=== PATIENT | female | born 1995 | race Caucasian/White ===

== ENCOUNTER 2016-03-28 10:27 | Emergency (ER) | payer OTHER ==
[2016-03-28 12:22] VITALS: BP 114/75
--- NOTE | 2016-03-28 12:52 | UC ---
Respiratory Complaint HPI - HPI Summary HPI Summary: Cough and fever starting 4 days ago, spent most of her time in bed since then. Today felt very sick to her stomach, one episode of loose stool and 2 episodes of vomiting. Has been wheezing, no hx of trouble breathing. - History of Current Complaint Chief Complaint: UCGeneralIllness Stated Complaint: COUGH AND FEVER Time Seen by Provider: 03/28/16 12:30 Hx Obtained From: Patient Hx Last Menstrual Period: 03/23/16 ?: No Onset/Duration: Gradual Onset, Lasting Days Timing: Constant Severity Initially: Moderate Severity Currently: Moderate Character: Cough: Nonproductive Aggravating Factors: Recumbent Position Alleviating Factors: Upright Position Associated Signs And Symptoms: Positive: Fever, Chills, Wheezing - Allergies/Home Medications Allergies/Adverse Reactions: Allergies Allergy/AdvReac Type Severity Reaction Status Date / Time COUGH MEDICINE Allergy Severe PUPILS Uncoded 03/28/16 12:22 DILATE & "MADE ME SICK" Home Medications: Home Medications Acetaminophen [Extra Strength Acetaminop] 2 tab PO PRN 03/28/16 [History] PMH/Surg Hx/FS Hx/Imm Hx Previously Healthy: Yes Endocrine History Of: Denies: Diabetes, Thyroid Disease Cardiovascular History Of: Denies: Cardiac Disorders, Hypertension Respiratory History Of: Denies: COPD, Asthma GI/ History Of: Denies: Ulcer - Surgical History Surgical History: Yes Surgery Procedure, Year, and Place: DENTAL - Family History Known Family History: Positive: Unknown, Other - FHx [place] in grandfather - Social History Occupation: Student Lives: With Family Alcohol Use: None Substance Use Type: None Smoking Status (MU): Heavy Every Day Tobacco Smoker Type: Cigarettes Household Exposure Type: Cigarettes Review of Systems Constitutional: Fever, Chills Skin: Negative Eyes: Negative ENT: Nasal Discharge Respiratory: Cough Cardiovascular: Negative Gastrointestinal: Vomiting, Diarrhea Genitourinary: Negative Motor: Negative Neurovascular: Negative Musculoskeletal: Negative Neurological: Negative Psychological: Negative All Other Systems Reviewed And Are Negative: Yes Physical Exam Triage Information Reviewed: Yes Appearance: Well-Appearing, No Pain Distress, Well-Nourished Vital Signs: Initial Vital Signs Temp 99.8 F 03/28/16 12:18 Pulse 99 03/28/16 12:18 Resp 18 03/28/16 12:18 BP 114/75 03/28/16 12:18 Pulse Ox 97 03/28/16 12:18 Vital Signs Reviewed: Yes Eye Exam: Normal Eyes: Positive: Conjunctiva Clear ENT: Positive: Hearing grossly normal, Pharynx normal, Nasal congestion, TMs normal Dental Exam: Normal Neck exam: Normal Neck: Positive: Supple, Nontender, No Lymphadenopathy Respiratory Exam: Normal Respiratory: Positive: Chest non-tender, Lungs clear, Normal breath sounds, No respiratory distress, No accessory muscle use. Negative: Respiratory distress, Crackles, Wheezing Cardiovascular: Positive: No Murmur, Tachycardia - low 100s on exam Abdomen Description: Positive: No Organomegaly, Soft. Negative: CVA Tenderness (R), CVA Tenderness (L) Musculoskeletal Exam: Normal Neurological Exam: Normal Psychological Exam: Normal Skin Exam: Normal UC Diagnostic Evaluation - Laboratory O2 Sat by Pulse Oximetry: 97 Respiratory Course/Dx - Differential Dx/Diagnosis Provider Diagnoses: influenza Discharge - Discharge Plan Condition: Stable Disposition: HOME Prescriptions: Albuterol HFA INHALER* [Ventolin HFA Inhaler*] 1 - 2 puff INH Q4H PRN #1 mdi PRN Reason: wheeze, cough Ondansetron ODT TAB* [Zofran Odt TAB*] 4 mg PO Q6H PRN #8 tab.odt PRN Reason: Vomiting Patient Education Materials: Influenza (ED) Referrals: Celsa Combs DO [Primary Care Provider] - If Needed Additional Instructions: I expect you to see clear improvement through this week; your temperature should go back to normal and your energy and appetite should improve. Call or return if you develop increasing fever, shortness of breath, chest pain , bloody sputum, or otherwise worsen. If you have not improved at all after several days, contact your primary care physician or return here. INHALED BRONCHODILATORS: You have received a prescription for an inhaled bronchodilator -- a medication which stimulates the airways in the lung to dilate. This improves the flow of air in asthma, bronchitis, and emphysema. These medicines have some similarity to adrenaline, and can cause similar side effects: shakiness, racing heart, and a sense of nervousness. These side effects can be reduced with the use of a spacer and usually decrease with time. Use 1-2 puffs up to every 4 hours as needed for wheezing or tightness in your chest. It may be helpful to use preventatively, such as before bedtime or before going outside into cold air. IF YOU FIND THAT YOU ARE CONSISTENTLY NEEDING THE INHALER MORE THAN 6 TIMES PER DAY, PLEASE CALL OR RETURN FOR FURTHER EVALUATION.
== END 2016-03-28 12:58 | disposition home or self-care (01) ==
LOC: UCEAST 10:27
DX: J11.1 Influenza due to unidentified influenza virus with other respiratory manifestations (principal); F17.210 Nicotine dependence, cigarettes, uncomplicated
CPT/HCPCS: 99212; G0463

== ENCOUNTER 2017-09-26 22:11 | Emergency (ER) | payer OTHER ==
--- NOTE | 2017-09-26 23:42 | ED ---
GI/ HPI - HPI Summary HPI Summary: This is scribe José Garcia documenting for attending Robert Gonsalez M.D. Patient is a 21 y/o F w/ c/o cramp and feeling a wire in her vagina onsetting today in the evening. She had an IUD placed over a year ago. On triage, pain is rated 0/10 and nothing is noted to aggravate/alleviate Sx. No other medical problems are reported, home medications and allergies reviewed. I, Dr. Gonsalez, personally performed the services described in this documentation as scribed in my presence and it is both accurate and complete. 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 Hx Obtained From: Patient Hx Last Menstrual Period: 03/23/16 Onset/Duration: Started Hours Ago - today in the evening, Still Present Timing: Constant Current Severity: None - pain is denied on triage Pain Intensity: 0 Additional Signs & Symptoms: Positive: Other: - IUD present Aggravating Factor(s): Nothing Alleviating Factor(s): Nothing - Allergy/Home Medications Allergies/Adverse Reactions: Allergies Allergy/AdvReac Type Severity Reaction Status Date / Time COUGH MEDICINE Allergy Severe PUPILS Uncoded 09/26/17 22:23 DILATE & "MADE ME SICK" PMH/Surg Hx/FS Hx/Imm Hx Endocrine/Hematology History: Denies: Hx Diabetes, Hx Thyroid Disease Cardiovascular History: Denies: Hx Hypertension Respiratory History: Denies: Hx Asthma, Hx Chronic Obstructive Pulmonary Disease (COPD) GI History: Denies: Hx Ulcer - Surgical History Surgery Procedure, Year, and Place: DENTAL Infectious Disease History: No Infectious Disease History: Denies: Hx Clostridium Difficile, Hx Hepatitis, Hx Human Immunodeficiency Virus (HIV), Hx of Known/Suspected MRSA, Hx Tuberculosis, Hx Known/Suspected VRE , Traveled Outside the [place] in Last 30 Days - Family History Known Family History: Positive: Other - FHx [place] in grandfather - Social History Alcohol Use: None Substance Use Type: Reports: None Smoking Status (MU): Heavy Every Day Tobacco Smoker Type: Cigarettes Review of Systems Negative: Fever - on vitals, temperature is 98.4 F Positive: other - cramping, patient states she feels a wire in her vagina All Other Systems Reviewed And Are Negative: Yes Physical Exam - Summary Physical Exam Summary: VITAL SIGNS: Reviewed. GENERAL: Patient is a well-developed and nourished female who is lying comfortable in the stretcher. Patient is not in any acute respiratory distress. HEAD AND FACE: No signs of trauma. No ecchymosis, hematomas or skull depressions. No sinus tenderness. EYES: PERRLA, EOMI x 2, No injected conjunctiva, no nystagmus. EARS: Hearing grossly intact. Ear canals and tympanic membranes are within normal limits. MOUTH: Oropharynx within normal limits. NECK: Supple, trachea is midline, no adenopathy, no JVD, no carotid bruit, no c- spine tenderness, neck with full ROM. CHEST: Symmetric, no tenderness at palpation LUNGS: Clear to auscultation bilaterally. No wheezing or crackles. CVS: Regular rate and rhythm, S1 and S2 present, no murmurs or gallops appreciated. ABDOMEN: Soft, non-tender. No signs of distention. No rebound no guarding, and no masses palpated. Bowel sounds are normal. PELVIS: Significant IUD out of cervix; mild spotting is also noted. No other abnormal findings. Exam done in presence of female lead project manager. EXTREMITIES: FROM in all major joints, no edema, no cyanosis or clubbing. NEURO: Alert and oriented x 3. No acute neurological deficits. Speech is normal and follows commands. SKIN: Dry and warm Triage Information Reviewed: Yes Vital Signs On Initial Exam: Initial Vitals Temp Pulse Resp BP Pulse Ox 98.4 F 94 16 108/65 97 09/26/17 22:20 09/26/17 22:20 09/26/17 22:20 09/26/17 22:20 09/26/17 22:20 Vital Signs Reviewed: Yes Procedures - Procedure Summary Procedure Summary: Dr. Gonsalez removed IUD in the presence of a female lead project manager. Diagnostics - Vital Signs Vital Signs Temp Pulse Resp BP Pulse Ox 09/26/17 22:20 98.4 F 94 16 108/65 97 - Laboratory Lab Statement: Any lab studies that have been ordered have been reviewed, and results considered in the medical decision making process. GIGU Course/Dx - Course Assessment/Plan: Patient is a 21 y/o F w/ c/o cramp and feeling a wire in her vagina onsetting today in the evening. She had an IUD placed over a year ago. On triage, pain is rated 0/10 and nothing is noted to aggravate/alleviate Sx. No other medical problems are reported, home medications and allergies reviewed. Physical exam showed significant IUD out of cervix and mild spotting as well. No other abnormal findings. IUD was removed. Patient was discharged to home with diagnosis of encounter for IUD removal. She was instructred to follow up with OBGYN in 1-2 days. Patient is agreeable with the plan. - Diagnoses Provider Diagnoses: Encounter for IUD removal Discharge - Sign-Out/Discharge Documenting (check all that apply): Patient Departure - discharge - Discharge Plan Condition: Stable Disposition: HOME Patient Education Materials: Dysfunctional Uterine Bleeding (ED) Referrals: [facility] [Provider Group] - 2 Days Additional Instructions: Follow up with OBGYN in 1-2 days. Return to ED for any new or worsening symptoms. As there is no longer any contraceptive device in place, be careful with sexual activity as there is risk of . - Billing Disposition and Condition Condition: STABLE Disposition: Home
[2017-09-27 00:07] VITALS: BP 104/64
== END 2017-09-27 00:07 | disposition home or self-care (01) ==
LOC: ED 22:11
DX: R10.30 Lower abdominal pain, unspecified (principal); Z30.432 Encounter for removal of intrauterine contraceptive device; Z88.8 Allergy status to other drugs, medicaments and biological substances; Z82.49 Family history of ischemic heart disease and other diseases of the circulatory system; F17.210 Nicotine dependence, cigarettes, uncomplicated
CPT/HCPCS: 99282

== ENCOUNTER 2018-08-08 12:04 | Emergency (ER) | payer SELFPAY ==
--- NOTE | 2018-08-08 13:44 | ED ---
Throat Pain/Nasal Congestion - HPI Summary HPI Summary: The patient is a 22 y/o F presenting to [facility] accompanied by friend with a chief complaint of intermittent right ear pain for last two weeks. She reports that she has been using Ibuprofen and cleaning the ear out, but the pain persists. Currently, the pain is rated 3/10 in severity. She additionally c/o pruritus of the ear and sinus congestion. She denies fever and chills. She has not been swimming recently. No previous hx. Current heavy everyday smoker, no EtOH, no substance use. LNMP: now. - History of Current Complaint Chief Complaint: EDEarPain Time Seen by Provider: 08/08/18 13:34 Hx Obtained From: Patient Onset/Duration: Gradual Onset, Lasting Weeks - two, Still Present Severity: Moderate Associated Signs And Symptoms: Positive: Sinus Discomfort Cough: None - Allergies/Home Medications Allergies/Adverse Reactions: Allergies Allergy/AdvReac Type Severity Reaction Status Date / Time COUGH MEDICINE Allergy Severe PUPILS Uncoded 09/26/17 22:23 DILATE & "MADE ME SICK" PMH/Surg Hx/FS Hx/Imm Hx Endocrine/Hematology History: Denies: Hx Diabetes, Hx Thyroid Disease Cardiovascular History: Denies: Hx Hypercholesterolemia, Hx Hypertension Respiratory History: Denies: Hx Asthma, Hx Chronic Obstructive Pulmonary Disease (COPD) GI History: Denies: Hx Ulcer Opthamlomology History: Denies: Hx Legally Blind EENT History: Denies: Hx Deafness - Surgical History Surgical History: Yes Surgery Procedure, Year, and Place: DENTAL Infectious Disease History: No Infectious Disease History: Denies: Hx Clostridium Difficile, Hx Hepatitis, Hx Human Immunodeficiency Virus (HIV), Hx of Known/Suspected MRSA, Hx Tuberculosis, Hx Known/Suspected VRE , Traveled Outside the [place] in Last 30 Days - Family History Known Family History: Positive: Cardiac Disease - [place] in grandmother - Social History Alcohol Use: None Hx Substance Use: No Substance Use Type: Reports: None Hx Tobacco Use: Yes Smoking Status (MU): Heavy Every Day Tobacco Smoker Type: Cigarettes Have You Smoked in the Last Year: Yes Review of Systems Negative: Fever, Chills Positive: Other - pain in the right ear with pruritus, sinus congestion All Other Systems Reviewed And Are Negative: Yes Physical Exam - Summary Physical Exam Summary: VITAL SIGNS: Reviewed. GENERAL: Patient is a well-developed and nourished female who is lying comfortable in the stretcher. Patient is not in any acute respiratory distress. HEAD AND FACE: No signs of trauma. No ecchymosis, hematomas or skull depressions. No sinus tenderness. EYES: PERRLA, EOMI x 2, No injected conjunctiva, no nystagmus. EARS: Hearing grossly intact. Right erythematous and bulging tympanic membrane. Ear canals and left tympanic membrane are otherwise within normal limits. MOUTH: Oropharynx within normal limits. NECK: Supple, trachea is midline, no adenopathy, no JVD, no carotid bruit, no c- spine tenderness, neck with full ROM. CHEST: Symmetric, no tenderness at palpation LUNGS: Clear to auscultation bilaterally. No wheezing or crackles. CVS: Regular rate and rhythm, S1 and S2 present, no murmurs or gallops appreciated. ABDOMEN: Soft, non-tender. No signs of distention. No rebound no guarding, and no masses palpated. Bowel sounds are normal. EXTREMITIES: FROM in all major joints, no edema, no cyanosis or clubbing. NEURO: Alert and oriented x 3. No acute neurological deficits. Speech is normal and follows commands. SKIN: Dry and warm. Triage Information Reviewed: Yes Vital Signs On Initial Exam: Initial Vitals Temp Pulse Resp BP Pulse Ox 98.3 F 71 16 125/65 98 08/08/18 12:06 08/08/18 12:06 08/08/18 12:06 08/08/18 12:06 08/08/18 12:06 Vital Signs Reviewed: Yes Diagnostics - Vital Signs Vital Signs Temp Pulse Resp BP Pulse Ox 08/08/18 12:06 98.3 F 71 16 125/65 98 - Laboratory Lab Statement: Any lab studies that have been ordered have been reviewed, and results considered in the medical decision making process. Re-Evaluation - Re-Evaluation First Eval Re-Evaluation Time: 13:45 Comment: I discussed discharge plan with the patient. EENT Course/Dx - Course Assessment/Plan: The patient is a 22 y/o F presenting to [facility] accompanied by friend with a chief complaint of intermittent right ear pain for last two weeks. She reports that she has been using Ibuprofen and cleaning the ear out, but the pain persists. Currently, the pain is rated 3/10 in severity. She additionally c/o pruritus of the ear and sinus congestion. She denies fever and chills. She has not been swimming recently. No previous hx. Current heavy everyday smoker, no EtOH, no substance use. LNMP: now. Physical exam is consistent with a right otitis media. Therefore the patient was given Augmentin and Toradol. The patient will be discharged home with follow-up with PCP. Patient is hemodynamically stable alert and oriented 3. - Diagnoses Provider Diagnoses: Otitis media Discharge - Sign-Out/Discharge Documenting (check all that apply): Patient Departure - Patient will be discharged home. Patient Received Moderate/Deep Sedation with Procedure: No - Discharge Plan Condition: Stable Disposition: HOME Prescriptions: Amoxicillin/Clavulanate TAB* [Augmentin TAB 875*] 875 mg PO BID #20 tab Patient Education Materials: Ear Infection (ED) Referrals: Harika Connelly PA [Primary Care Provider] - Additional Instructions: Please take medications as prescribed. Follow up with your primary care provider in 2-3 days. RETURN TO THE EMERGENCY DEPARTMENT FOR ANY NEW OR WORSENING SYMPTOMS. - Billing Disposition and Condition Condition: STABLE Disposition: Home - Attestation Statements Document Initiated by Iram: Yes Documenting Scribe: Kiersten Harmon Provider For Whom Iram is Documenting (Include Credential): Dr. Morro Varghese MD Scribe Attestation: Kiersten Bryson scribed for Dr. Morro Varghese MD on 08/08/18 at 1439. Scribe Documentation Reviewed: Yes Provider Attestation: The documentation as recorded by the Kiersten perry accurately reflects the service I personally performed and the decisions made by me, Dr. Morro Varghese MD Status of Scribe Document: Ready
[2018-08-08] MEDS: Amoxicillin/Clavulanate TAB* 875 MG PO SCH (13:49)
[2018-08-08] MEDS: Ketorolac INJ* 60 MG/2 ML VIAL IM ONE (13:50)
[2018-08-08 14:05] VITALS: BP 102/51
== END 2018-08-08 14:04 | disposition home or self-care (01) ==
LOC: ED 12:04
DX: H66.91 Otitis media, unspecified, right ear (principal); F17.210 Nicotine dependence, cigarettes, uncomplicated
CPT/HCPCS: 96372; 99281; A9270-GY; J1885